=== PATIENT | female | born 1990 ===

== ENCOUNTER 2017-06-19 13:49 | Emergency (ER) | payer MEDICAID ==
[2017-04-05 08:39] VITALS: BMI 25.0
--- NOTE | 2017-06-19 18:29 | OBHP ---
Datetime: 06/19/2017 15:46 IP Adm Impression: Term, intrauterine IP Admit Plan: Observation/Evaluation; Discharge home Admit Comment, IP Provider: 26 y/o female presents at 40weeks gestation based on a 15wk U/S and consistent with LMP with LATRICE on 06/19 presents with intermittent lower abdominal pain. Pt states sky t she visited the clinic yesterday and was found to be 4cm dilated and was told by her OB to come back in 3 days to schedule an induction for 06/26 if she does not go into labor. Reports minima l vaginal discharge, no loss of vaginal fluid loss or bleeding. Reports good movement. LMP: 09/12 PNC: Pt receives care at [facility]. Tested positive for Chlam in 1st trimester and was ruth elvis. Test of cure negative (01/23). 1hr GGT was abnormal but 3hr GGT was normal. Remainder of PNC lab s unremarkable. Last U/S was on 05/09 reporting posterior placenta, no previa, EFW 29 (32%) GBS: (unknown) Pt had cultures done yesterday, will not have the results until tomorrow. Blood Type B+, HIV nonreactive, Hep B negative, HCV negative, Quantiferon negative, RPR negative, Varicella Immune, Rubella Immune, Quad screen negative, Utox negative OBHx: 1 prior in 2016, female, full term, weight 9lb (macrosomia), no complications; Pt states she did not feel any contractions and had AROM PEANUT SHAKER Hx: Age of onset 14, regular periods, Abnormal pap smear in 2011- ASCUS with positive HPV. As per patient, pap smear from this was normal. Medical Hx: Denies Surgical Hx: Breast Cystectomy BL- 4 cysts removed each breast in 2008 Medications: PNV Allergies: NKDA ROS: Denies headache, blurry vision, SOB, CP, Dysuria, n/v. Vital Signs (Triage): 122/74, HR 109 FHR: 135-140, moderate variability, accelerations, no decelerations Physical Exam: General: Comfortable, NAD Cardiac: RRR, no murmurs Resp: Clear to auscultation BL Abdomen: Gravid, NT Extremities: Trace Edema Bimanual Exam: Cervix 4cm dilated, 60% effaced, with -3 station Assessment: IUP at 40 weeks gestation, not in active labor. Plan: Will observe for progression of labor. Continuous monitoring and monitor maternal malachi l signs Q4 Discussed case with OB Attending Dr. Dilcia Johns, PGY1 OB Hospitalist Addendum: Pt seen and examined by me. Agree w/ above. 26 yo at 40 wks w/ c/o lower abdominal pain Gen'l: pt appears comfortable lying in stretcher VE 4/60/-2 at 3pm, IVF started at 4:30pm VE unchanged at 6pm NST reactive Pt discharged home w/ labor precautions, to f/u in clinic in 2 days (ES) Abdomen - PN: Normal Neurologic - PN: Normal General - PN: Normal FHR - Baseline A Provider: 130's Membranes, Provider: Intact Contraction Comments Provider: irregular EGA AdmitDate IP: 40.0 IP Chief Complaint: Uterine contractions NICHD Variability Prov Fetus A: Moderate 6-25bpm NICHD Accel Fetus A IP Provider: [id number] FHR Category Provider Fetus A: Category I NICHD Decel Fetus A IP Provider: None Dilatation, Provider: 4 Effacement, Provider: 60 Station, Provider: -3 Genitourinary Exam: Normal
[2017-06-19 23:12] VITALS: BP 123/72; PULSE 99; RESP 18; TEMP 98.9; O2SAT 100
== END 2017-06-19 18:20 | disposition home or self-care (01) ==
LOC: H.EROB 13:49 → H.EROB2 13:49
DX: O47.1 False labor at or after 37 completed weeks of gestation (principal); O48.0 Post-term pregnancy; Z3A.40 40 weeks gestation of pregnancy

== ENCOUNTER 2017-06-21 08:58 | Emergency (ER) | payer MEDICAID ==
[2017-04-05 08:39] VITALS: BMI 25.0
[2017-06-21] MEDS ORDERED: Phenaphthazine-PH Test Paper VI ONE (09:22)
[2017-06-21 17:09] VITALS: BP 119/62; PULSE 106; RESP 20; TEMP 98.2; O2SAT 100
== END 2017-06-21 12:46 | disposition home or self-care (01) ==
LOC: H.EROB2 08:58 → H.L&D 09:01 → H.EROB2 12:46
DX: O47.1 False labor at or after 37 completed weeks of gestation (principal); Z3A.39 39 weeks gestation of pregnancy

== ENCOUNTER 2017-06-22 18:17 | Inpatient (IN) | payer MEDICAID ==
[2017-06-22] MEDS ORDERED: Oxytocin 10 Units/ml Inj ONE (18:52)
[2017-06-22] MEDS ORDERED: Lidocaine 1% Inj (20ml) ONE (18:54)
[2017-06-22 18:57] VITALS: BMI 31.4
[2017-06-22] MEDS ORDERED: Oxycodone/Acetaminophen 5/325 mg Tab PO PRN ×4 (18:57→21:52)
[2017-06-22 19:49] LABS: BASO # 0.1 K/uL (0.0-0.2); BASO % 0.6 % (0.0-2.0); EOS # 0.2 K/uL (0.0-0.7); EOS % 1.3 % (0.0-4.0); LYMPH # 1.9 K/uL (1.0-4.3); LYMPH % 14.5 % (20.0-40.0); MEAN CELL VOLUME 91.2 fl (81.0-99.0); MEAN CORPUSCULAR HEMOGLOBIN 29.5 pg (27.0-31.0); MEAN CORPUSCULAR HGB CONC 32.3 g/dL (33.0-37.0); MEAN PLATELET VOLUME 8.9 fl (7.2-11.7); MONO # 1.2 K/uL (0.0-0.8); MONO % 8.9 % (0.0-10.0); NEUT % 74.7 % (50.0-75.0); RED CELL DISTRIBUTION WIDTH 13.9 % (11.5-14.5); WHITE BLOOD COUNT 13.3 K/uL (4.8-10.8)
[2017-06-22 20:02] VITALS: RESP 18; O2SAT 100
--- NOTE | 2017-06-22 22:39 | OBADHP ---
Datetime: 06/19/2017 15:46 Admit Comment, IP Provider: 26 y/o female presents at 40weeks gestation based on a 15wk U/S and consistent with LMP with LATRICE on 06/19 presents with intermittent lower abdominal pain. Pt states sky t she visited the clinic yesterday and was found to be 4cm dilated and was told by her OB to come back in 3 days to schedule an induction for 06/26 if she does not go into labor. Reports minima l vaginal discharge, no loss of vaginal fluid loss or bleeding. Reports good movement. LMP: 09/12 PNC: Pt receives care at [facility]. Tested positive for Chlam in 1st trimester and was ruth elvis. Test of cure negative (01/23). 1hr GGT was abnormal but 3hr GGT was normal. Remainder of PNC lab s unremarkable. Last U/S was on 05/09 reporting posterior placenta, no previa, EFW 29 (32%) GBS: (unknown) Pt had cultures done yesterday, will not have the results until tomorrow. Blood Type B+, HIV nonreactive, Hep B negative, HCV negative, Quantiferon negative, RPR negative, Varicella Immune, Rubella Immune, Quad screen negative, Utox negative OBHx: 1 prior in 2016, female, full term, weight 9lb (macrosomia), no complications; Pt states she did not feel any contractions and had AROM BARGEMAN Hx: Age of onset 14, regular periods, Abnormal pap smear in 2011- ASCUS with positive HPV. As per patient, pap smear from this was normal. Medical Hx: Denies Surgical Hx: Breast Cystectomy BL- 4 cysts removed each breast in 2008 Medications: PNV Allergies: NKDA ROS: Denies headache, blurry vision, SOB, CP, Dysuria, n/v. Vital Signs (Triage): 122/74, HR 109 FHR: 135-140, moderate variability, accelerations, no decelerations Physical Exam: General: Comfortable, NAD Cardiac: RRR, no murmurs Resp: Clear to auscultation BL Abdomen: Gravid, NT Extremities: Trace Edema Bimanual Exam: Cervix 4cm dilated, 60% effaced, with -3 station Assessment: IUP at 40 weeks gestation, not in active labor. Plan: Will observe for progression of labor. Continuous monitoring and monitor maternal malachi l signs Q4 Discussed case with OB Attending Dr. Dilcia Johns, PGY1 OB Hospitalist Addendum: Pt seen and examined by me. Agree w/ above. 26 yo at 40 wks w/ c/o lower abdominal pain Gen'l: pt appears comfortable lying in stretcher VE 4/60/-2 at 3pm, IVF started at 4:30pm VE unchanged at 6pm NST reactive Pt discharged home w/ labor precautions, to f/u in clinic in 2 days (ES) Abdomen - PN: Normal Neurologic - PN: Normal General - PN: Normal FHR - Baseline A Provider: 130's Membranes, Provider: Intact Contraction Comments Provider: irregular IP Chief Complaint: Uterine contractions NICHD Variability Prov Fetus A: Moderate 6-25bpm NICHD Accel Fetus A IP Provider: [id number] FHR Category Provider Fetus A: Category I NICHD Decel Fetus A IP Provider: None Dilatation, Provider: 4 Effacement, Provider: 60 Station, Provider: -3 Genitourinary Exam: Normal EGA AdmitDate IP: 40.0 IP Adm Impression: Term, intrauterine IP Admit Plan: Observation/Evaluation; Discharge home
--- NOTE | 2017-06-22 22:49 | OBDS ---
DELIVERY PERSONNEL Delivery Doctor: Laya Gage MD MATERNAL INFORMATION Delivery Anesthesia: Local Medications in Delivery: Pitocin 30u/500mL of NS Placenta Cultured: No Maternal Complications: None Provider Comments: Normal spontaneous vaginal delivery. Delivered viable infant with Apgars of 9 and 9 at one and 5 minutes respectively. delivered via KATHI position. Placenta spontaneously. Laceration repaired, as above. Uterus firm and appropriate ly hemostatic following delivery. No complications. Estimated blood loss 200 mL. Patient tolerated re pair and delivery well. LABOR SUMMARY EDC: 06/19/2017 00:00 No. Babies in Womb: 1 Attempted: No Labor Anesthesia: None LABOR INFORMATION Reason for Induction: Not Applicable Oxytocin: N/A Group B Beta Strep: Negative Steroids Given: None Reason Steroids Not Administered: Not Applicable MEMBRANES Membranes Rupture Method: Spontaneous Rupture of Membranes: 06/22/2017 17:30 Length of Rupture (hrs): 1.27 Amniotic Fluid Color: Clear Amniotic Fluid Amount: None Amniotic Fluid Odor: Normal STAGES OF LABOR Stage 3 hrs: 0 Stage 3 min: 6 VAGINAL DELIVERY Episiotomy: None Laceration Extension: First Degree Laceration Type: Vaginal Laceration Repair: Yes Laceration Repair Note: First-degree left vaginal laceration. 1% lidocaine. Laceration repaired with 2. 0 Rapide without complication. Patient tolerated well BABY A INFORMATION Infant Delivery Date/Time: 06/22/2017 18:46 Method of Delivery: Vaginal Born in Route : No : N/A Forceps: N/A Vacuum Extraction: N/A Shoulder Dystocia : No SHOULDER DYSTOCIA BABY A Delivery Date/Time: 06/22/2017 18:46 PRESENTATION/POSITION BABY A Presentation: Cephalic Cephalic Presentation: Vertex Breech Presentation: N/A PLACENTA INFORMATION BABY A Placenta Delivery Time : 06/22/2017 18:52 Placenta Method of Delivery: Spontaneous Placenta Status: Delivered SCORES BABY A Heart Rate 1 min: >100 bpm Resp Effort 1 min: Good Cry Reflex Irritability 1 min: Cough or Sneeze or Pulls Away Muscle Tone 1 min: Active Motion Color 1 min: Body [place], Extremities Blue SCORE 1 MIN: 9 Heart Rate 5 min: >100 bpm Resp Effort 5 min: Good Cry Reflex Irritability 5 min: Cough or Sneeze or Pulls Away Muscle Tone 5 min: Active Motion Color 5 min: Body [place], Extremities Blue SCORE 5 MIN: 9 INFANT INFORMATION BABY A Gestational Age at Delivery: 40.3 Gestational Status: Term Outcome : Liveborn Condition : Stable Infant Sex: Female CORD INFORMATION BABY A No. Cord Vessels: 3 Nuchal Cord : N/A Cord Blood Taken: N/A
[2017-06-23] MEDS ORDERED: Benzocaine/Menthol SPRAY TOP PRN (03:46)
[2017-06-23 06:55] LABS: HEMATOCRIT 29.7 % (34.0-47.0); MEAN CELL VOLUME 90.2 fl (81.0-99.0); MEAN CORPUSCULAR HEMOGLOBIN 29.8 pg (27.0-31.0); RED CELL DISTRIBUTION WIDTH 13.6 % (11.5-14.5); WHITE BLOOD COUNT 12.1 K/uL (4.8-10.8)
[2017-06-23] MEDS ORDERED: Influenza Vaccine 18yr & older 0.5 ML/45 MCG SYR IM ONE (07:15)
[2017-06-23] MEDS ORDERED: Pneumococcal 23-Valent Vaccine IM ONE (07:16)
--- NOTE | 2017-06-23 09:37 | OBPPN ---
Datetime: 06/23/2017 09:33 PP Pain Prov: Within normal limits PP Nausea Prov: Denies PP Flatus Prov: Yes PP Breasts Prov: Not Done PP Heart Prov: Normal PP Lungs Prov: Normal PP Abdomen/Uterus Prov: Normal PP Lochia Prov: Not Done PP Vulva/Perineum Prov: Not Done PP CVA Tenderness Prov: Normal PP Extremities Prov: Normal PP Progress Prov: Normal PP Impression Prov: Normal progression PP Progress Note Prov: Patient doing well reports minimal lochia and pain well controlled 40 without difficulty Vital signs stable afebrile Uterus firm below the umbilicus Extremities no Homans day #1 Encourage ambulation, regular diet, analgesics as needed Vital Signs Provider PP: Reviewed
--- NOTE | 2017-06-24 09:53 | OBPPN ---
Datetime: 06/24/2017 05:11 PP Pain Prov: Within normal limits PP Nausea Prov: Denies PP Flatus Prov: Yes PP BM Prov: Yes PP Heart Prov: Normal PP Lungs Prov: Normal PP Abdomen/Uterus Prov: Normal PP Lochia Prov: Normal PP Vulva/Perineum Prov: Normal PP CVA Tenderness Prov: Normal PP Extremities Prov: Normal PP C/S Incision Prov: Normal PP Progress Prov: Normal PP Impression Prov: Normal progression PP Plan Prov: Discharge PP Progress Note Prov: 26 y/o s/p . Patient seen and examined at the bedside this am. No ov ernight events. Patient reports mild abdominal pain but states it is well controlled with pain meds. Patient is tolerated regular diet well, has had BM and passed gas per rectum. Pt is and has lochia that is similar to menses in volume. Denies fever/chills, n/v/d, chest pain, dyspnea, hea dache, dizziness O: VSS Gen: NAD Resp: Clear to auscultation BL Abdomen: BS+, Mild tenderness to palpation, Uterus firm at the level of umbilicus Ext: No pedal edema, calves non tender Neuro/psych: AAOx3, cn II-XI intact, preserved affect and mood. Assessment/Plan: 26 y/o now doing well on PP day 2. OOB with caution. SCDs for DVT prophylaxis, encouraged ambulating Percocet 5/325mg, and Ibuprofen 600mg for pain. Colace 100mg PO BID for constipation PCV and flu vaccine administered Postpart CBC: 9.8/29.7 Assessement: 26 y/o now s/p Plan:Pt to be discharged today The attending addendum: Patient seen and examined by me agree with above assessment and plan. Plan: Been breast-feeding maternal and discussed with patient. IP PP Procedures: None Vital Signs Provider PP: Reviewed
--- NOTE | 2017-06-24 09:53 | OBDCSUM ---
Datetime: 06/21/2017 12:46 Discharged to, Provider: Home Disch Instr Activity: Normal activity; May be up to bathroom; May be up for meals; May Shower Discharge Instructions, Provider: Routine instructions given Discharge Diagnosis, Provider: Term Delivered Discharge Time: 06/24/2017 12:46 Follow up in weeks, Provider: 4-6 weeks Contraception discussed, Prov: No Disch Activity Restrictions: No sexual activity; Nothing in vagina - [place], tampons, douche Discharge Comment, Provider: DOA:06/24 EGA: 40 weeks gestation Diagnosis: Uncomplicated vaginal delivery with 1st degree laceration repair Risk factors: none Summary of : PNC unremarkable L_D summary: , patient tolerated delivery and repair well DOD: 06/22, 18:40 NB: Male : 9,9 Weight:3385 g Post summary: No complications during post . Mother is tolerating delivery well. No s erious problems during post . Lochia- menses. Pain but controlled with meds PCV and Flu vaccine given CBC post : 8.8/29.7 Blood Type: B+ D/C Date: 06/24 Discharge instructions: 1. Encourage 2. PNV vitamins 1tab po qday 3. Ibuprofen 600mg 1 greene PO prn q6 if moderate pain 4. Ferrous Sulfate 325mg once po daily. Take with orange juice 5. If excessive bleeding or fever, go to ED 6. F/u at [facility] with OB for post visit within 4-6 weeks. Blanche PGY1
[2017-06-24 19:06] VITALS: BP 129/67; PULSE 78; TEMP 97.5
== END 2017-06-24 12:45 | disposition home or self-care (01) | DRG 373 ==
LOC: H.EROB2 18:17 → H.L&D 18:57 → H.OB/GYN 21:31
PROVIDERS: ADMIT Obstetrics & Gynecology; ATTEND Obstetrics & Gynecology
PROC: 0HQ9XZZ Repair Perineum Skin, External Approach (ICD-10-PCS; principal; 2017-06-22)
PROC: 10E0XZZ Delivery of Products of Conception, External Approach (ICD-10-PCS; 2017-06-22)
PROC: 4A1HXCZ Monitoring of Products of Conception, Cardiac Rate, External Approach (ICD-10-PCS; 2017-06-22)
DX: O70.0 First degree perineal laceration during delivery (principal); K59.00 Constipation, unspecified; Z37.0 Single live birth; Z3A.40 40 weeks gestation of pregnancy